=== PATIENT | male | born 1980 | race Asian ===

== ENCOUNTER 2018-06-04 16:25 | Inpatient (IN) | payer BC ==
[~2018-06-04] VITALS: Ht 167.6 cm; Wt 88.6 kg
[2018-06-04 16:48] VITALS: BP 125/78
[2018-06-04] MEDS ORDERED: AMLODIPINE BESY10 MG PO (17:26)
[2018-06-04] MEDS ORDERED: COLCRYS0.6 MG PO (17:26)
[2018-06-04] MEDS ORDERED: [UNRECOGNIZED DRUG - OTHER] PO (17:26)
[2018-06-04] MEDS ORDERED: IBUPROFEN400 MG PO (17:26)
[2018-06-04 18:05] VITALS: BP 125/78
[2018-06-04] MEDS: DEXTROSE 5%/0.45% SOD CHL 1,000 ML IV SCH (18:25)
[2018-06-04] MEDS: METRONIDAZOLE 500MG/NS 100ML 100 ML IV SCH (18:25)
[2018-06-04] MEDS: HYDROCODONE/APAP 5MG-325MG TAB PO PRN (18:25)
[2018-06-04 19:06] LABS: BASOPHILS # (AUTO) 0.1 (0.0-0.1); BASOPHILS % 0.5 % (0.0-1.0); EOSINOPHILS # (AUTO) 0.3 (0.0-0.4); EOSINOPHILS % 2.4 % (0.0-6.0); HEMATOCRIT 42.4 % (38.2-49.6); HEMOGLOBIN 14.4 g/dL (14.0-18.0); LYMPHOCYTES % 18.6 % (18.0-39.1); MEAN CORPUSCULAR HEMOGLOBIN 29.3 pg (28-32); MEAN CORPUSCULAR VOLUME 86.4 fL (81-99); MONOCYTES # (AUTO) 0.6 (0.2-0.8); MONOCYTES % 5.5 % (4.4-11.3); NEUTROPHILS # (AUTO) 7.9 (2.1-6.9); NEUTROPHILS % 72.7 % (38.7-80.0); PLATELET COUNT 283 x10e3/uL (140-360); RED BLOOD COUNT 4.91 x10e6/uL (4.3-5.7)
[2018-06-04 19:51] VITALS: BP 118/75
[2018-06-04] MEDS: LEVOFLOXACIN 500MG/D5W 100ML 100 ML IV SCH (19:58)
[2018-06-04 20:03] LABS: ALBUMIN/GLOBULIN RATIO 1.1 (0.8-2.0); ANION GAP 16.6 mmol/L (8-16); CALCIUM 9.7 mg/dL (8.4-10.2); CREATININE, SERUM 1.4 mg/dL (0.72-1.25); POTASSIUM 3.6 mmol/L (3.5-5.1)
[2018-06-04 22:35] VITALS: BP 118/75
--- NOTE | 2018-06-04 22:37 | Consultation ---
DATE OF CONSULTATION: June 04, 2018 HISTORY: This is 38-year-old who has no medical problem, presented apparently because of abdominal pain along with jaundice. He had an ultrasound as an outpatient which apparently showed gallstones, but his bilirubin was 5. He denies any previous history of liver disease along with the problem. OTHER MEDICAL PROBLEMS: Significant for history of hypertension. MEDICATIONS AT HOME: Includes allopurinol, amlodipine. SOCIAL HISTORY: Drinks alcohol socially. FAMILY HISTORY: Noncontributory. REVIEW OF SYSTEMS: Denies any chest pain. No shortness of breath. Denies any dysphagia or odynophagia. Denies any dysuria or hematuria or syncopal episodes. PHYSICAL EXAMINATION: GENERAL: Patient is awake, alert, appeared to be stable, not in acute distress at this point. VITAL SIGNS: Afebrile currently with stable vital signs. HEAD, EYES, EARS, NOSE, AND THROAT: Normocephalic. Sclerae are somewhat icteric. NECK: Supple. HEART: Regular. LUNGS: Clear. ABDOMEN: Soft. There is some tenderness in the epigastric area. There is no rebound or mass. EXTREMITIES: No clubbing. LAB VALUES: Today, WBC of 10.85. IMPRESSION: Gallstone with possible choledocholithiasis. RECOMMENDATIONS: Continue the current care, follow labs, will proceed with ERCP for further evaluation. Risks and benefits were discussed with the patient at length in detail. Patient understands risk of bleeding, infection, perforation as well as pancreatitis. Follow labs and clinically. Job#: [id number] cc:MD OLESYA MARTINEZ MD
[2018-06-05] VITALS (7 sets, daily range): BP systolic 110–140; BP diastolic 62–89
[2018-06-05] MEDS: MORPHINE SULFATE INJ 4 MG/ML INJ IV PRN ×6 (00:48→23:59)
[2018-06-05] MEDS: ONDANSETRON HCL INJ 2 MG/ML VIAL IV PRN ×2 (00:48→13:53)
[2018-06-05] MEDS: METRONIDAZOLE 500MG/NS 100ML 100 ML IV SCH ×3 (01:43→17:18)
[2018-06-05] MEDS: HYDROCODONE/APAP 5MG-325MG TAB PO PRN ×2 (03:12→13:24)
[2018-06-05] MEDS: DEXTROSE 5%/0.45% SOD CHL 1,000 ML IV SCH ×2 (05:04→14:00)
[2018-06-05 05:58] LABS: INR 0.87; PROTHROMBIN TIME 12.7 seconds (11.9-14.5)
[2018-06-05 06:10] LABS: ALANINE AMINOTRANSFERASE 302 IU/L (0-55); ALBUMIN 3.7 g/dL (3.5-5.0); ALBUMIN/GLOBULIN RATIO 1.1 (0.8-2.0); ALKALINE PHOSPHATASE 213 IU/L (40-150); ANION GAP 14.5 mmol/L (8-16); BLOOD UREA NITROGEN 12 mg/dL (7-26); BUN/CREATININE RATIO 11 (6-25); CALCIUM 9.8 mg/dL (8.4-10.2); CARBON DIOXIDE 24 mmol/L (22-29); CHLORIDE 107 mmol/L (98-107); CREATININE, SERUM 1.13 mg/dL (0.72-1.25); EST GLOMERULAR FILTRATION RATE > 60 ML/MIN (60-); GLUCOSE 93 mg/dL (74-118); POTASSIUM 3.5 mmol/L (3.5-5.1); SODIUM 142 mmol/L (136-145)
[2018-06-05] MEDS ORDERED: IOPAMIDOL 610MG/1ML 300 MG/ML VIAL IV ONE (11:32)
[2018-06-05] MEDS ORDERED: IBUPROFEN 400 MG TAB PO PRN (13:00)
[2018-06-05] MEDS: ALLOPURINOL 300 MG TAB PO SCH (13:24)
[2018-06-05] MEDS: COLCHICINE 0.6 MG TAB PO SCH (13:24)
[2018-06-05] MEDS ORDERED: MORPHINE SULFATE 2 MG/ML SYR IV STA (15:47)
[2018-06-05] MEDS: AMLODIPINE BESYLATE 10 MG TAB PO SCH (15:59)
[2018-06-05] MEDS ORDERED: PROPOFOL IV EMULSION 10 MG/ML 20 ML VIAL ONE (17:23)
[2018-06-05] MEDS: LEVOFLOXACIN 500MG/D5W 100ML 100 ML IV SCH (18:29)
[2018-06-05] MEDS ORDERED: MIDAZOLAM HCL 2 MG/2 ML VIAL ONE (19:17)
[2018-06-05] MEDS ORDERED: FENTANYL CITRATE/PF 100MCG/2 ML INJ ONE (19:17)
[2018-06-06] VITALS (7 sets, daily range): BP systolic 128–152; BP diastolic 63–89
[2018-06-06] MEDS: METRONIDAZOLE 500MG/NS 100ML 100 ML IV SCH ×3 (01:56→17:12)
[2018-06-06] MEDS: DEXTROSE 5%/0.45% SOD CHL 1,000 ML IV SCH ×4 (01:56→17:26)
[2018-06-06] MEDS ORDERED: MORPHINE SULFATE 2 MG/ML SYR ONE ×2 (02:46→06:33)
[2018-06-06] MEDS: MORPHINE SULFATE INJ 4 MG/ML INJ IV PRN ×3 (02:54→10:22)
[2018-06-06 05:52] LABS: HEMATOCRIT 39.9 % (38.2-49.6); HEMOGLOBIN 13.9 g/dL (14.0-18.0); MEAN CORPUSCULAR HEMOGLOBIN 29.8 pg (28-32); MEAN CORPUSCULAR HGB CONC 34.8 g/dL (31-35); MEAN CORPUSCULAR VOLUME 85.6 fL (81-99); PLATELET COUNT 253 x10e3/uL (140-360); RED BLOOD COUNT 4.66 x10e6/uL (4.3-5.7)
[2018-06-06 06:21] LABS: ALANINE AMINOTRANSFERASE 312 IU/L (0-55); ALBUMIN 3.7 g/dL (3.5-5.0); ALKALINE PHOSPHATASE 220 IU/L (40-150); BILIRUBIN,DIRECT 1.5 mg/dL (0.0-0.5); BLOOD UREA NITROGEN 8 mg/dL (7-26); BUN/CREATININE RATIO 8 (6-25); CALCIUM 9.3 mg/dL (8.4-10.2); CARBON DIOXIDE 25 mmol/L (22-29); CHLORIDE 102 mmol/L (98-107); CREATININE, SERUM 0.95 mg/dL (0.72-1.25); EST GLOMERULAR FILTRATION RATE > 60 ML/MIN (60-); GLUCOSE 134 mg/dL (74-118); SODIUM 138 mmol/L (136-145)
[2018-06-06 06:42] LABS: LIPASE 1816 U/L (8-78)
[2018-06-06] MEDS ORDERED: ACETAMINOPHEN 325 MG SUPP PR PRN (07:15)
[2018-06-06] MEDS: ALLOPURINOL 300 MG TAB PO SCH (08:19)
[2018-06-06] MEDS: AMLODIPINE BESYLATE 10 MG TAB PO SCH ×2 (08:19→16:20)
[2018-06-06] MEDS: COLCHICINE 0.6 MG TAB PO SCH (08:19)
[2018-06-06] MEDS: ONDANSETRON HCL INJ 2 MG/ML VIAL IV PRN (10:28)
[2018-06-06] MEDS ORDERED: HYDROMORPHONE 1MG/1ML INJ IV PRN (13:15)
[2018-06-06] MEDS: HYDROMORPHONE 2MG/ML 2 MG/ML ML IV PRN ×4 (13:27→22:35)
--- NOTE | 2018-06-06 16:15 | Diagnostic Imaging Report ---
PROCEDURE:ERCP FLUOROSCOPIC IMAGES INTERPRETATION TECHNIQUE:Fluoroscopic images from ERCP were submitted for interpretation. INDICATION:Evaluate for stone COMPARISON:None. FINDINGS: Initial image demonstrates an endoscope in the duodenum, there is cannulation of the pancreatic duct and subsequently the common bile duct. Fluoroscopic contrast injection demonstrates a dilated common bile duct, the distal CBD is not well opacified, which may be secondary to stones. Subsequently, a balloon is inflated and repeat sweeps are performed, with subsequent contrast injections demonstrating improved opacification of the distal CBD. Final image provided is somewhat limited by motion but demonstrates no residual filling defect to suggest stone. No contrast is seen in the small bowel. CONCLUSION: Dilated CBD with distal CBD filling defects, likely representing stones. Balloon sweeps performed with improved opacification of the distal CBD and no large filling defect to suggest residual stone. Dictated by: SUSU WILLETT M.D. on 06/06/2018 at 16:23 Electronically approved by: SUSU WILLETT M.D. on 06/06/2018 at 16:23
[2018-06-06] MEDS ORDERED: ACETAMINOPHEN 1000 MG/100 ML IV SCH (18:00)
[2018-06-06] MEDS: LEVOFLOXACIN 500MG/D5W 100ML 100 ML IV SCH (18:39)
[2018-06-06] MEDS: ACETAMINOPHEN 1000 MG/100 ML IV SCH (20:00)
[2018-06-07] VITALS: BP 127/79
[2018-06-07] MEDS: HYDROMORPHONE 2MG/ML 2 MG/ML ML IV PRN ×12 (01:22→23:50)
[2018-06-07] MEDS: DEXTROSE 5%/0.45% SOD CHL 1,000 ML IV SCH ×4 (02:41→17:26)
[2018-06-07] MEDS: METRONIDAZOLE 500MG/NS 100ML 100 ML IV SCH ×3 (02:41→17:45)
[2018-06-07] MEDS: ACETAMINOPHEN 1000 MG/100 ML IV SCH ×4 (02:50→18:00)
[2018-06-07 04:00] VITALS: BP 133/76
[2018-06-07 06:13] LABS: HEMATOCRIT 39.3 % (38.2-49.6); HEMOGLOBIN 13.6 g/dL (14.0-18.0); MEAN CORPUSCULAR HEMOGLOBIN 29.6 pg (28-32); MEAN CORPUSCULAR HGB CONC 34.6 g/dL (31-35); MEAN CORPUSCULAR VOLUME 85.4 fL (81-99); PLATELET COUNT 248 x10e3/uL (140-360)
[2018-06-07 06:34] LABS: ALANINE AMINOTRANSFERASE 207 IU/L (0-55); ALBUMIN 3.4 g/dL (3.5-5.0); ALKALINE PHOSPHATASE 182 IU/L (40-150); ANION GAP 13.5 mmol/L (8-16); BLOOD UREA NITROGEN 11 mg/dL (7-26); BUN/CREATININE RATIO 12 (6-25); CALCIUM 9.2 mg/dL (8.4-10.2); CARBON DIOXIDE 23 mmol/L (22-29); CHLORIDE 102 mmol/L (98-107); CREATININE, SERUM 0.95 mg/dL (0.72-1.25); EST GLOMERULAR FILTRATION RATE > 60 ML/MIN (60-); GLUCOSE 118 mg/dL (74-118); LIPASE 302 U/L (8-78); POTASSIUM 3.5 mmol/L (3.5-5.1); SODIUM 135 mmol/L (136-145)
[2018-06-07 07:26] LABS: BAND NEUTROPHILS % (MANUAL) 5 %; LYMPHOCYTES % (MANUAL) 2 % (19-48); METAMYELOCYTES % (MANUAL) 1 % (0-0); MONOCYTES % (MANUAL) 6 % (3.4-9.0); NEUTROPHILS % (MANUAL) 85 % (40-74)
[2018-06-07 07:29] LABS: ANISOCYTOSIS SLIGHT; PLATELET ESTIMATE ADEQUATE; PLATELET MORPHOLOGY COMMENT NORMAL; RBC MORPHOLOGY COMMENT NORMAL
[2018-06-07 07:36] LABS: EOSINOPHILS % (MANUAL) 1 % (0-7); LYMPHOCYTES % (MANUAL) 7 % (19-48); MONOCYTES % (MANUAL) 8 % (3.4-9.0); MYELOCYTES % (MANUAL) 2 % (0-0); NEUTROPHILS % (MANUAL) 82 % (40-74)
[2018-06-07 07:37] LABS: ANISOCYTOSIS SLIGHT; PLATELET ESTIMATE ADEQUATE; PLATELET MORPHOLOGY COMMENT NORMAL
[2018-06-07 07:38] LABS: RBC MORPHOLOGY COMMENT NORMAL
[2018-06-07 08:00] VITALS: BP 138/86
[2018-06-07] MEDS: COLCHICINE 0.6 MG TAB PO SCH (09:00)
[2018-06-07] MEDS: AMLODIPINE BESYLATE 10 MG TAB PO SCH ×2 (09:00→17:00)
[2018-06-07] MEDS: ALLOPURINOL 300 MG TAB PO SCH (09:00)
[2018-06-07 11:56] VITALS: BP 134/81
[2018-06-07 16:00] VITALS: BP 178/93
[2018-06-07] MEDS: LEVOFLOXACIN 500MG/D5W 100ML 100 ML IV SCH (18:00)
[2018-06-07 20:00] VITALS: BP 152/85
[2018-06-08] VITALS (8 sets, daily range): BP systolic 121–155; BP diastolic 68–86
[2018-06-08] MEDS: HYDROMORPHONE 2MG/ML 2 MG/ML ML IV PRN ×11 (02:00→22:15)
[2018-06-08] MEDS: METRONIDAZOLE 500MG/NS 100ML 100 ML IV SCH ×3 (02:00→18:00)
[2018-06-08] MEDS: DEXTROSE 5%/0.45% SOD CHL 1,000 ML IV SCH ×3 (03:14→16:13)
[2018-06-08] MEDS: ACETAMINOPHEN 650 MG SUPP PR PRN ×4 (04:30→20:23)
[2018-06-08 04:49] LABS: HEMATOCRIT 37.4 % (38.2-49.6); MEAN CORPUSCULAR HEMOGLOBIN 29.5 pg (28-32); MEAN CORPUSCULAR HGB CONC 34.8 g/dL (31-35); PLATELET COUNT 259 x10e3/uL (140-360); RED CELL DISTRIBUTION WIDTH 12.7 % (11.7-14.4)
[2018-06-08 05:20] LABS: ALANINE AMINOTRANSFERASE 135 IU/L (0-55); ALBUMIN 3.2 g/dL (3.5-5.0); ALBUMIN/GLOBULIN RATIO 0.9 (0.8-2.0); ALKALINE PHOSPHATASE 146 IU/L (40-150); ANION GAP 14.4 mmol/L (8-16); BLOOD UREA NITROGEN 9 mg/dL (7-26); BUN/CREATININE RATIO 11 (6-25); CARBON DIOXIDE 22 mmol/L (22-29); CHLORIDE 102 mmol/L (98-107); EST GLOMERULAR FILTRATION RATE > 60 ML/MIN (60-); GLUCOSE 120 mg/dL (74-118); LIPASE 53 U/L (8-78); POTASSIUM 3.4 mmol/L (3.5-5.1); SODIUM 135 mmol/L (136-145)
[2018-06-08 06:29] LABS: BAND NEUTROPHILS % (MANUAL) 2 %; LYMPHOCYTES % (MANUAL) 12 % (19-48); MONOCYTES % (MANUAL) 5 % (3.4-9.0); NEUTROPHILS % (MANUAL) 80 % (40-74)
[2018-06-08 06:30] LABS: PLATELET ESTIMATE ADEQUATE; PLATELET MORPHOLOGY COMMENT NORMAL; RBC MORPHOLOGY COMMENT NORMAL
[2018-06-08] MEDS: AMLODIPINE BESYLATE 10 MG TAB PO SCH ×2 (09:00→17:00)
[2018-06-08] MEDS: ALLOPURINOL 300 MG TAB PO SCH (09:00)
[2018-06-08] MEDS: COLCHICINE 0.6 MG TAB PO SCH (09:00)
--- NOTE | 2018-06-08 09:01 | Diagnostic Imaging Report ---
EXAM: CT Abdomen and Pelvis WITH contrast INDICATION: Pancreatitis/gallstones COMPARISON: None. TECHNIQUE: Abdomen and Pelvis was scanned utilizing a multidetector helical scanner after administration of IV contrast. Coronal and sagittal reformations were obtained. IV CONTRAST: 100 mL Isovue-370 COMPLICATIONS: None RADIATION DOSE: Total DLP:775 mGy*cm Estimated effective dose: (DLP x 0.015 x size factor) mSv CTDIvol has been reviewed. It is below the limits set by the Radiation Protocol Committee (RPC). Appropriate CT dose reduction techniques were utilized. FINDINGS: Abdomen: Lung Bases: Trace pleural effusions and basilar atelectasis. Solid Organs: Moderate stranding and fluid present about the pancreas. The pancreas homogeneously enhances with no definable peripancreatic rim-enhancing fluid collections. There is hyperemia of the gallbladder wall with surrounding inflammatory changes. Liver, adrenals, kidneys, and spleen unremarkable. Upper GI Tract: Thickening distal esophageal wall. No small bowel obstructive changes. Vascularity: No aortic aneurysm. Lymph Nodes: No suspicious adenopathy. Other: Small amount of free fluid and moderate mesenteric inflammatory changes upper abdomen/right upper quadrant. Pelvis: Bladder: Unremarkable. Other: Small amount of pelvic free fluid. Colon: No acute colonic findings. Bones: No acute findings. IMPRESSION: 1. Moderate changes of pancreatitis with no drainable peripancreatic fluid collections. Pancreas homogeneously enhances. 2. There is hyperemia of the gallbladder wall with surrounding inflammatory changes. No radiopaque gallbladder or common duct stones identified. Common duct measures approximately 9 mm in diameter. Sonographic evaluation may be of additional benefit. Signed by: Dr. Ben Monzon MD on 06/08/2018 8:58 AM
[2018-06-08] MEDS: LEVOFLOXACIN 500MG/D5W 100ML 100 ML IV SCH (17:09)
[2018-06-08] MEDS ORDERED: SODIUM CHLORIDE 0.9% 50ML 50 ML ONE (17:53)
[2018-06-08] MEDS ORDERED: IOPAMIDOL 370 MG/ML 200 ML INFUS..BTL INJ ONE (17:54)
[2018-06-09] VITALS: BP 146/84
[2018-06-09] MEDS: HYDROMORPHONE 2MG/ML 2 MG/ML ML IV PRN ×12 (00:15→22:27)
[2018-06-09] MEDS: ACETAMINOPHEN 650 MG SUPP PR PRN ×2 (00:18→20:25)
[2018-06-09] MEDS: DEXTROSE 5%/0.45% SOD CHL 1,000 ML IV SCH ×3 (02:20→17:26)
[2018-06-09] MEDS: METRONIDAZOLE 500MG/NS 100ML 100 ML IV SCH ×3 (02:20→17:31)
[2018-06-09 04:00] VITALS: BP 139/87
[2018-06-09 06:44] LABS: HEMATOCRIT 35.5 % (38.2-49.6); HEMOGLOBIN 12.3 g/dL (14.0-18.0); MEAN CORPUSCULAR HEMOGLOBIN 29.3 pg (28-32); MEAN CORPUSCULAR HGB CONC 34.6 g/dL (31-35); MEAN CORPUSCULAR VOLUME 84.5 fL (81-99); PLATELET COUNT 292 x10e3/uL (140-360); RED CELL DISTRIBUTION WIDTH 12.7 % (11.7-14.4)
[2018-06-09 07:11] LABS: ALANINE AMINOTRANSFERASE 89 IU/L (0-55); ALBUMIN 3.1 g/dL (3.5-5.0); ALBUMIN/GLOBULIN RATIO 0.9 (0.8-2.0); ALKALINE PHOSPHATASE 134 IU/L (40-150); ANION GAP 13.3 mmol/L (8-16); BLOOD UREA NITROGEN 8 mg/dL (7-26); BUN/CREATININE RATIO 11 (6-25); CARBON DIOXIDE 24 mmol/L (22-29); CHLORIDE 99 mmol/L (98-107); CREATININE, SERUM 0.76 mg/dL (0.72-1.25); EST GLOMERULAR FILTRATION RATE > 60 ML/MIN (60-); GLUCOSE 120 mg/dL (74-118); POTASSIUM 3.3 mmol/L (3.5-5.1); SODIUM 133 mmol/L (136-145)
[2018-06-09 07:34] LABS: LYMPHOCYTES % (MANUAL) 10 % (19-48); MONOCYTES % (MANUAL) 5 % (3.4-9.0); NEUTROPHILS % (MANUAL) 85 % (40-74); PLATELET ESTIMATE ADEQUATE; PLATELET MORPHOLOGY COMMENT NORMAL; RBC MORPHOLOGY COMMENT NORMAL
[2018-06-09 07:52] VITALS: BP 140/88
[2018-06-09] MEDS: ALLOPURINOL 300 MG TAB PO SCH (09:00)
[2018-06-09] MEDS: AMLODIPINE BESYLATE 10 MG TAB PO SCH ×2 (09:00→17:00)
[2018-06-09] MEDS: COLCHICINE 0.6 MG TAB PO SCH (09:00)
[2018-06-09 11:30] VITALS: BP 142/80
[2018-06-09] MEDS ORDERED: HYDROCODONE/APAP 10MG-325MG TAB PO PRN (12:15)
[2018-06-09 15:26] VITALS: BP 147/86
[2018-06-09] MEDS: LEVOFLOXACIN 500MG/D5W 100ML 100 ML IV SCH (18:00)
[2018-06-09 20:00] VITALS: BP 136/69
[2018-06-09] MEDS: SODIUM CHLORIDE 0.9% 1000ML 1,000 ML IV SCH (20:15)
[2018-06-09] MEDS: ZOLPIDEM TARTRATE 5 MG TAB PO PRN (20:26)
--- NOTE | 2018-06-09 21:06 | Progress Note ---
DATE: June 09, 2018 SUBJECTIVE: Patient reports persistence of abdominal pain. He is not feeling hungry to eat. REVIEW OF SYSTEMS GENERAL: No fever or chills. RESPIRATORY: No cough or expectoration. CVS: No chest pain or palpitation. MEDICATIONS: He is getting intravenous levofloxacin and metronidazole along with D5 half and his IV fluids. PHYSICAL EXAMINATION VITAL SIGNS: Temperature 98.6, pulse 77, respirations 18, blood pressure 147/86 to 142/80, oxygen saturation 97% on room air. GENERAL: Not in any acute distress. HEENT: Oral mucosa, coated tongue. Mucous membranes moist. ABDOMEN: Soft. Palpable upper quadrant tenderness with some rigidity without guarding or any rebound. Bowel sounds present. No other mass or hernia. LABS: WBC has come down to 18.97, hemoglobin 12.3, hematocrit 35.5, and platelet count 292. Sodium 133, potassium 3.3, chloride 99, bicarb 24, BUN 8, and creatinine 0.76. Liver enzymes showed AST has come down to 25, ALT 89, alkaline phosphatase 134, and total bilirubin is 1.3 down from 1.8. Lipase normalized yesterday to 53. IMPRESSION: Mild post endoscopic retrograde cholangiopancreatography pancreatitis. PLAN: Change D5 half NS to normal saline at 150 mL an hour. Maintain n.p.o. Serial abdominal exam. Patient is already on clear liquid, advance the diet only if patient becomes hungry. Hunger is the best sign of recovery from pancreatitis. My associate, Dr. Chavez, will follow the patient from tomorrow. I was covering for Dr. Chavez over the weekend. Job#: [id number] DIEGO
[2018-06-10] VITALS (7 sets, daily range): BP systolic 131–144; BP diastolic 73–91
[2018-06-10] MEDS: HYDROMORPHONE 2MG/ML 2 MG/ML ML IV PRN ×11 (00:22→21:58)
[2018-06-10] MEDS: SODIUM CHLORIDE 0.9% 1000ML 1,000 ML IV SCH ×4 (02:23→21:40)
[2018-06-10] MEDS: METRONIDAZOLE 500MG/NS 100ML 100 ML IV SCH ×3 (02:23→17:15)
[2018-06-10] MEDS: COLCHICINE 0.6 MG TAB PO SCH (09:23)
[2018-06-10] MEDS: AMLODIPINE BESYLATE 10 MG TAB PO SCH ×2 (09:23→17:00)
[2018-06-10] MEDS: ALLOPURINOL 300 MG TAB PO SCH (09:23)
[2018-06-10] MEDS ORDERED: POTASSIUM CHLORIDE 20MEQ/100ML 100 ML IV ONE (12:45)
[2018-06-10] MEDS: LEVOFLOXACIN 500MG/D5W 100ML 100 ML IV SCH (18:23)
[2018-06-10] MEDS: ZOLPIDEM TARTRATE 5 MG TAB PO PRN (22:11)
[2018-06-11] VITALS (9 sets, daily range): BP systolic 117–150; BP diastolic 65–91
[2018-06-11] MEDS: HYDROMORPHONE 2MG/ML 2 MG/ML ML IV PRN ×10 (00:22→22:30)
[2018-06-11] MEDS: METRONIDAZOLE 500MG/NS 100ML 100 ML IV SCH ×2 (02:29→09:34)
[2018-06-11] MEDS: SODIUM CHLORIDE 0.9% 1000ML 1,000 ML IV SCH ×5 (04:09→22:57)
[2018-06-11 05:51] LABS: HEMATOCRIT 36.7 % (38.2-49.6); HEMOGLOBIN 12.6 g/dL (14.0-18.0); MEAN CORPUSCULAR HEMOGLOBIN 29.3 pg (28-32); MEAN CORPUSCULAR HGB CONC 34.3 g/dL (31-35); MEAN CORPUSCULAR VOLUME 85.3 fL (81-99); PLATELET COUNT 405 x10e3/uL (140-360); RED CELL DISTRIBUTION WIDTH 12.9 % (11.7-14.4)
[2018-06-11 06:13] LABS: ANION GAP 16.5 mmol/L (8-16); BLOOD UREA NITROGEN 8 mg/dL (7-26); BUN/CREATININE RATIO 10 (6-25); CALCIUM 9.2 mg/dL (8.4-10.2); CARBON DIOXIDE 20 mmol/L (22-29); CHLORIDE 103 mmol/L (98-107); CREATININE, SERUM 0.77 mg/dL (0.72-1.25); EST GLOMERULAR FILTRATION RATE > 60 ML/MIN (60-); GLUCOSE 94 mg/dL (74-118); POTASSIUM 3.5 mmol/L (3.5-5.1); SODIUM 136 mmol/L (136-145)
[2018-06-11] MEDS: ALLOPURINOL 300 MG TAB PO SCH (09:00)
[2018-06-11] MEDS: COLCHICINE 0.6 MG TAB PO SCH (09:00)
[2018-06-11] MEDS: AMLODIPINE BESYLATE 10 MG TAB PO SCH ×2 (09:00→17:00)
[2018-06-11] MEDS ORDERED: BUPIVACAINE HCL 0.5% INJ 30 ML VIAL INJ ONE (10:22)
[2018-06-11] MEDS ORDERED: DEXTROSE 5%/LACTATED RINGERS 1,000 ML IV SCH (11:36)
[2018-06-11] MEDS ORDERED: ONDANSETRON HCL INJ 2 MG/ML VIAL IV PRN (11:45)
[2018-06-11] MEDS ORDERED: ACETAMINOPHEN 1000 MG/100 ML 100 ML IV ONE (11:52)
--- NOTE | 2018-06-11 14:05 | Operative Report ---
DATE OF PROCEDURE: June 11, 2018 PREOPERATIVE DIAGNOSIS: Acute cholecystitis and cholelithiasis. POSTOPERATIVE DIAGNOSIS: Acute cholecystitis and cholelithiasis. PROCEDURES 1. Diagnostic laparoscopy. 2. Laparoscopic cholecystectomy. 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 ANESTHESIA: General endotracheal. INDICATIONS AND FINDINGS: The patient is a 38-year-old male admitted to the hospital with abdominal pain and jaundice. Preop evaluation revealed gallstones. He had an ERCP and then developed pancreatitis. After the ERCP, this has gradually resolved. At surgery, it was found that the patient had a gallbladder that was very distended with adherent omentum over the neck and fundus of the gallbladder. Considerable inflammation of the gallbladder, and also there was considerable edema around the pancreas. There was no free fluid seen. The liver appeared normal. Stomach and bowel that was seen appeared normal. TECHNIQUE: After adequate general endotracheal anesthesia with the patient in the supine position, the abdomen was prepped and draped in a sterile fashion with [place] solution. Skin in the umbilicus was infiltrated with 0.5% Marcaine. Incision was made in the umbilicus. Abdominal wall was elevated and Veress needle was introduced. Pneumoperitoneum was then created. A 10-mm trocar and cannula was then passed through the umbilical wound. Laparoscopic camera was introduced. Initial laparoscopy revealed considerable edema around the pancreas. No free fluid was seen. The liver that was seen appeared normal. Stomach appeared normal. The bowel that was seen appeared normal. A 10-mm trocar and cannula was placed epigastrium and two 5-mm trocars and cannulas were placed in the right upper quadrant. These were placed under direct vision. Fundus of the gallbladder could be seen. It was grasped and retracted superiorly. It was somewhat tense, but could be grasped. There was adherent omentum over the fundus and neck of the gallbladder, and these adhesions were lysed exposing the gallbladder completely. Neck of the gallbladder was grasped and retracted laterally. Peritoneum over the neck of the gallbladder was incised. The gallbladder cystic duct junction was dissected free. Cystic artery was also dissected free. The neck of the gallbladder was completely dissected free. Cystic artery was divided between Hemoclips close to the gallbladder. Cystic duct also divided between Hemoclips with 3 clips being left on the common bile duct side. There was a posterior branch of cystic artery, which was also divided between Hemoclips. The gallbladder was dissected free from the liver using scissors and electrocautery. Once it was completely free, it was placed into an Endopouch and brought out through the epigastric cannula. It contained thick sludge and multiple small stones. Gallbladder bed was inspected for hemostasis, which was seen to be adequate. It was irrigated with saline. All fluid aspirated. Inspected for hemostasis which was seen to be adequate. Instruments and cannulas were then removed. Pneumoperitoneum was evacuated. Wounds were then closed. Fascia in the umbilical and epigastrium wound closed with 0 Vicryl. Skin to all wounds was closed with javier. Sterile dressings applied to each wound. The patient tolerated the procedure well. Estimated blood loss was 30 mL. There were no complications. All counts were correct. Patient was taken to the recovery room in satisfactory condition. Job#: [id number] JEM
[2018-06-11] MEDS ORDERED: LIDOCAINE HCL 2% LOCAL INJ 5 ML SDV VIAL INJ ONE (17:37)
[2018-06-11] MEDS ORDERED: ONDANSETRON HCL INJ 2 MG/ML VIAL ONE (17:37)
[2018-06-11] MEDS ORDERED: DEXAMETHASONE SOD PHOS INJ 4 MG/ML VIAL ONE (17:37)
[2018-06-11] MEDS ORDERED: PROPOFOL IV EMULSION 10 MG/ML 20 ML VIAL ONE (17:37)
[2018-06-11] MEDS ORDERED: SEVOFLURANE INHAL SOLN 250 ML PEN BTL ONE (17:37)
[2018-06-11] MEDS ORDERED: ROCURONIUM BROMIDE 10 MG/ML 5ML VIAL ONE (17:37)
[2018-06-11] MEDS ORDERED: NEOSTIGMINE 5 MG/5ML SYR ONE (17:37)
[2018-06-11] MEDS ORDERED: KETOROLAC TROMETHAMINE 30 MG/ML VIAL ONE (17:37)
[2018-06-11] MEDS ORDERED: GLYCOPYRROLATE INJ 1MG/ 5 ML SYR ONE (17:37)
[2018-06-11] MEDS ORDERED: FENTANYL CITRATE/PF 100MCG/2 ML INJ ONE (18:04)
[2018-06-11] MEDS ORDERED: MIDAZOLAM HCL 2 MG/2 ML VIAL ONE (18:04)
[2018-06-12] VITALS (7 sets, daily range): BP systolic 113–143; BP diastolic 65–86
[2018-06-12] MEDS: HYDROCODONE/APAP 10MG-325MG TAB PO PRN ×5 (00:55→20:54)
[2018-06-12 06:03] LABS: BASOPHILS # (AUTO) 0.1 (0.0-0.1); BASOPHILS % 0.4 % (0.0-1.0); EOSINOPHILS % 0.1 % (0.0-6.0); HEMATOCRIT 31.5 % (38.2-49.6); HEMOGLOBIN 10.8 g/dL (14.0-18.0); LYMPHOCYTES # (AUTO) 1.9 (1.0-3.2); LYMPHOCYTES % 13.4 % (18.0-39.1); MEAN CORPUSCULAR HEMOGLOBIN 29.2 pg (28-32); MEAN CORPUSCULAR HGB CONC 34.3 g/dL (31-35); MEAN CORPUSCULAR VOLUME 85.1 fL (81-99); MONOCYTES # (AUTO) 1.1 (0.2-0.8); MONOCYTES % 7.9 % (4.4-11.3); NEUTROPHILS # (AUTO) 10.7 (2.1-6.9); NEUTROPHILS % 75.9 % (38.7-80.0); PLATELET COUNT 400 x10e3/uL (140-360); RED CELL DISTRIBUTION WIDTH 12.9 % (11.7-14.4)
[2018-06-12] MEDS: HYDROMORPHONE 2MG/ML 2 MG/ML ML IV PRN (06:16)
[2018-06-12 06:21] LABS: ALANINE AMINOTRANSFERASE 52 IU/L (0-55); ALBUMIN 2.6 g/dL (3.5-5.0); ALBUMIN/GLOBULIN RATIO 0.8 (0.8-2.0); ALKALINE PHOSPHATASE 105 IU/L (40-150); ANION GAP 13.4 mmol/L (8-16); BLOOD UREA NITROGEN 9 mg/dL (7-26); BUN/CREATININE RATIO 13 (6-25); CALCIUM 8.7 mg/dL (8.4-10.2); CARBON DIOXIDE 24 mmol/L (22-29); CHLORIDE 108 mmol/L (98-107); EST GLOMERULAR FILTRATION RATE > 60 ML/MIN (60-); GLUCOSE 131 mg/dL (74-118); LIPASE 29 U/L (8-78); POTASSIUM 3.4 mmol/L (3.5-5.1); SODIUM 142 mmol/L (136-145)
[2018-06-12] MEDS: ALLOPURINOL 300 MG TAB PO SCH (07:59)
[2018-06-12] MEDS: SODIUM CHLORIDE 0.9% 1000ML 1,000 ML IV SCH ×3 (07:59→18:11)
[2018-06-12] MEDS: AMLODIPINE BESYLATE 10 MG TAB PO SCH ×2 (07:59→16:48)
[2018-06-12] MEDS: COLCHICINE 0.6 MG TAB PO SCH (07:59)
[2018-06-13] VITALS: BP 120/82
[2018-06-13] MEDS: HYDROCODONE/APAP 10MG-325MG TAB PO PRN ×4 (02:31→15:53)
[2018-06-13 04:00] VITALS: BP 158/88
[2018-06-13 08:00] VITALS: BP 123/87
[2018-06-13] MEDS: SODIUM CHLORIDE 0.9% 1000ML 1,000 ML IV SCH ×2 (09:40→13:45)
[2018-06-13] MEDS: ALLOPURINOL 300 MG TAB PO SCH (09:57)
[2018-06-13] MEDS: AMLODIPINE BESYLATE 10 MG TAB PO SCH (09:57)
[2018-06-13 12:00] VITALS: BP 136/81
[2018-06-13] MEDS ORDERED: CARAFATE1 GM/10 ML PO (16:05)
[2018-06-13] MEDS ORDERED: NORCO 10-325 T1 EACH PO (16:05)
--- NOTE | 2018-06-13 17:59 | Discharge Summary ---
ADMISSION DIAGNOSES: Acute cholecystitis, cholelithiasis, choledocholithiasis. DISCHARGE DIAGNOSES 1. Acute cholecystitis, cholelithiasis, choledocholithiasis. 2. Acute pancreatitis. PRINCIPAL PROCEDURES 1. Endoscopic retrograde cholangiopancreatography. 2. Laparoscopic cholecystectomy. HISTORY OF PRESENT ILLNESS: The patient is a 38-year-old male who presented to the office with complaints of abdominal pain, which was epigastric. Workup had revealed gallstones as well as elevated bilirubin. HOSPITAL COURSE: The patient was admitted to the hospital. Evaluation revealed elevated bilirubin. He was seen in consultation by gastroenterology with gallstones and elevated bilirubin and underwent endoscopic retrograde cholangiopancreatography with sphincterotomy. The patient developed pancreatitis after this procedure with pain in the epigastrium. He was kept n.p.o. until the pancreatitis resolved. CT of the abdomen was done which revealed pancreatitis, but no pseudocyst, also findings suggested possible acute cholecystitis. He has low-grade fever. Elevated white blood cell count has gradually improved. The lipase which had become elevated came down to normal after about 5 days. He underwent laparoscopic cholecystectomy on 06/11/2018. Postoperatively, the patient felt much better. His pain was less. He was started on diet. Diet was advanced without problems. He was out of bed, ambulating. He became afebrile and he was discharged home on the 2nd postop day. At the time of discharge, the wounds were clean, tolerating diet. DISCHARGE MEDICATIONS: [place] and Carafate. FOLLOWUP INSTRUCTIONS: He will follow up with Dr. Dodson approximately one week after discharge. He was sent home in satisfactory condition on a regular diet. KELLY DODSON MD Job#: [id number]
== END 2018-06-13 16:27 | disposition home or self-care (01) | DRG 417 ==
LOC: MED/SURG3 16:25
PROVIDERS: ADMIT Surgery; ATTEND Surgery
PROC: 0FT44ZZ Resection of Gallbladder, Percutaneous Endoscopic Approach (ICD-10-PCS; principal; 2018-06-04)
PROC: 0F798ZZ Dilation of Common Bile Duct, Via Natural or Artificial Opening Endoscopic (ICD-10-PCS; 2018-06-05)
PROC: BF101ZZ Fluoroscopy of Bile Ducts using Low Osmolar Contrast (ICD-10-PCS; 2018-06-05)
DX: K80.62 Calculus of gallbladder and bile duct with acute cholecystitis without obstruction (principal); K85.90 Acute pancreatitis without necrosis or infection, unspecified; I10 Essential (primary) hypertension; F17.200 Nicotine dependence, unspecified, uncomplicated
CPT/HCPCS: 36415; 43260; 74177; 74328; 80048; 80053; 80076; 83690; 85007; 85025; 85027; 85610; 88304; 96361; 96367; J1100; J1885; J1956; J2001; J2250; J2270; J2405; J3480; J7030; Q9967